=== PATIENT | female | born 1930 | race Caucasian/White ===

== ENCOUNTER 2018-07-03 14:38 | Emergency (ER) | payer MEDICARE, OTHER ==
--- NOTE | 2018-07-03 15:55 | CT ---
FCT brain noncontrast: HISTORY: head trauma FINDINGS: There is no evidence of acute intra-axial or extra-axial hemorrhage. No mass effect, midline shift, o r extra-axial fluid collection. No evidence of obstructive hydrocephalus. Calvarium is intact. IMPRESSION: No acute intracranial findings.
--- NOTE | 2018-07-03 15:57 | CT ---
FCT cervical spine noncontrast: HISTORY: 87-year-old female status post acute cervical trauma from fall. FINDINGS: No jumped or perched facets. Vertebral body heights are maintained. High-grade degenerative disc dise ase at C4-5 and C5-6. High-grade degenerative facet changes at several levels bilaterally. IMPRESSION: 1. Cervical spondylosis. 2. No acute fracture or acute traumatic subluxation.
--- NOTE | 2018-07-03 16:11 | RAD ---
FRadiograph right shoulder 3 views: HISTORY: 87-year-old female with traumatic shoulder pain from fall FINDINGS: No evidence of acute fracture, dislocation, or subluxation. Mild DJD at glenohumeral joint. Moderate DJD at AC joint. IMPRESSION: 1. No fracture. 2. Osteoarthrosis of acromioclavicular joint.
--- NOTE | 2018-07-03 16:12 | RAD ---
FXR Wrist 3 Rt View STANDARD: 07/03/2018 3:29 PM CLINICAL INDICATION: Wrist pain related to fall COMPARISON: None. FINDINGS: Fracture:No fracture. Arthropathy:Severe arthropathy. Incidental findings:Soft tissue prominence IMPRESSION: 1. No acute osseous abnormality.
[2018-07-03] MEDS ORDERED: Lidocaine 1% w/Epinephrine 1:100K 20 ML VIAL ONE (16:56)
[2018-07-03] MEDS ORDERED: Adacel (T-DAP) 0.5 ML SYRINGE ONE (17:29)
== END 2018-07-03 19:13 ==
LOC: ERS 14:38
DX: S01.511A Laceration without foreign body of lip, initial encounter (principal); S01.111A Laceration without foreign body of right eyelid and periocular area, initial encounter; S00.31XA Abrasion of nose, initial encounter; I11.0 Hypertensive heart disease with heart failure; I50.9 Heart failure, unspecified; E11.9 Type 2 diabetes mellitus without complications; E03.9 Hypothyroidism, unspecified; W19.XXXA Unspecified fall, initial encounter
CPT/HCPCS: 12013; 70450; 72125; 90471; 90715; J2001

== ENCOUNTER 2018-07-11 15:22 | Emergency (ER) | payer MEDICARE, OTHER | END 2018-07-11 16:44 | disposition home or self-care (01) | LOC: SCSER/OP 15:22 | DX: S01.511D Laceration without foreign body of lip, subsequent encounter (principal); E11.9 Type 2 diabetes mellitus without complications; E03.9 Hypothyroidism, unspecified; I11.0 Hypertensive heart disease with heart failure; I50.9 Heart failure, unspecified ==

== ENCOUNTER 2019-07-26 20:36 | Emergency (ER) | payer MEDICARE, OTHER ==
[~2019-07-26 20:36] MED LIST: EPINEPHrine 1 MG/10 ML Abboject SYRINGE ONE
[2019-07-26] MEDS ORDERED: fentaNYL Citrate/PF 2,000 MCG in Sodium Chloride 0.9% 60 ML IV SCH (21:02)
[2019-07-26 21:08] LABS: #Basophils 0.1 thou/uL (0.0-0.2); #Eosinphils 0.2 thou/uL (0.0-0.7); #Lymphocytes 5.9 thou/uL (1.20-3.40); #Monocytes 0.9 thou/uL (0.11-0.59); #Neutrophils 10.8 thou/uL (1.40-6.50); %Basophils 0.7 % (0.0-1.0); %Eosinophils 1.2 % (0.0-10.0); %Lymphocytes 32.8 % (21.0-51.0); %Monocytes 5.2 % (0.0-10.0); %Neutrophils 60.1 % (42.0-75.0); Hemoglobin 13.2 g/dL (12.0-16.0); Mean Corpuscular HGB CONC 31.3 g/dL (32.0-36.0); Mean Corpuscular Hemoglobin 29.3 pg (27.0-31.0); Mean Corpuscular Volume 93.7 fL (78.0-98.0); Mean Platelet Volume 8.7 fL (7.4-10.4); Platelet Count 296 thou/uL (130-400); RBC Distribution Width 14.8 % (11.5-14.5); Red Blood Cell (RBC) Count 4.52 mill/uL (4.20-5.40)
--- NOTE | 2019-07-26 21:10 | RAD ---
PORTABLE CHEST: 07/26/19 INDICATIONS: Difficulty breathing. Possible COVID-19. COMPARISON: 01/10/14. FINDINGS/IMPRESSION: Mild cardiomegaly again noted. There is vascular congestion. There are bilateral confluent infiltrate s in the mid and lower lungs and there are bilateral effusions. POS: AGW
[2019-07-26 21:14] LABS: INR-International Normal Ratio 0.9; PTT 30.1 SEC (22.9-36.1); Prothrombin Time 12.4 SEC (12.0-14.7)
[2019-07-26 21:21] LABS: Actual Bicarbonate (HCO3a) 20.8 mEq/L (22-28); Analyzer IN Cardio ER; Base Excess (BEa) -6.6 mEq/L (-2.0 to +3.0); CO2 Tension 49.3 mmHg (35.0-45.0); Calcium, Ionized 1.24 mmol/L (1.12-1.30); Carboxyhemoglobin (COHb) 0.2 gm% (0.0-3.0); Hemoglobin (Hb) 11.8 g/dL (12.0-16.0); Potassium - ABG Lab 3.97 mmol/L (3.70-5.30)
[2019-07-26 21:25] LABS: ALT (SGPT) 8 U/L (8-55); AST (SGOT) 14 U/L (5-34); Albumin 4.5 g/dL (3.4-4.8); Alkaline Phosphatase 62 U/L (40-110); Anion Gap 19 mmol/L (10-20); BUN (Urea Nitrogen) 17 mg/dL (9.8-20.1); Bilirubin, Total 0.4 mg/dL (0.2-1.2); CK (CPK) 24 U/L (29-168); Calc. Creatinine Clearance 0 mL/min (70-130); Calcium 10.8 mg/dL (7.8-10.44); Carbon Dioxide 23 mmol/L (23-31); Chloride 105 mmol/L (98-107); Estimated GFR-MDRD 36; Globulin 3.8 g/dL (2.4-3.5); Glucose 151 mg/dL (83-110); Potassium 5.5 mmol/L (3.5-5.1); Protein, Total 8.3 g/dL (6.0-8.3); Sodium 141 mmol/L (136-145)
[2019-07-26 21:58] LABS: Bacteria/HPF 4+ HPF (None Seen); Bilirubin Negative (Negative); Blood, Urine Negative (Negative); Clarity Turbid (Clear); Glucose, Urine (Dipstick) Normal (Negative); Leukocyte 500 Leu/uL (Negative); Nitrite Negative (Negative); Protein, Urine (Dipstick) 70 mg/dL (Neg-Trace); RBC/HPF 0-3 HPF (0-3); Squamous Epithelial 0-3 HPF (0-3); Urobilinogen Normal mg/dL (Less than 2); WBC/HPF Greater than 50 HPF (0-3)
[2019-07-26] MEDS ORDERED: HumaLOG 300 UNITS/3 ML VIAL SC PRN (22:15)
[2019-07-26] MEDS ORDERED: Norepinephrine 8 MG/0.9% NS 250 ML IVPB PRN (22:15)
[2019-07-26] MEDS ORDERED: Dextrose 5% in Water 1,000 ML IV PRN (22:15)
[2019-07-26] MEDS ORDERED: Dextrose 50% Abboject 50 ML SYRINGE SLOW IVP PRN (22:15)
[2019-07-26] MEDS ORDERED: Azithromycin 500 MG in Sodium Chloride 0.9% 250 ML 250 ML IVPB SCH (22:15)
[2019-07-26 22:16] LABS: pH, Arterial 7.24 (7.35-7.45)
[2019-07-26 22:18] LABS: ALV-art Gradient 585.375 (0-20); Puncture Site RBA
[2019-07-26] MEDS ORDERED: Vancomycin 1 GM/200 ML BAG ONE (22:18)
[2019-07-26] MEDS ORDERED: Cefepime 2 GM VIAL ONE (22:18)
[2019-07-26 22:41] LABS: Phosphorus 3.7 mg/dL (2.3-4.7)
[2019-07-26] MEDS ORDERED: cefTRIAXone\\ROCEPHIN 1 GM in Sodium Chloride 0.9% 100 ML IVPB SCH (23:15)
[2019-07-27] MEDS ORDERED: Levothyroxine Sodium 125 MCG TAB PO SCH (06:00)
[2019-07-27] MEDS ORDERED: Furosemide 40 MG/4 ML VIAL SLOW IVP SCH (06:00)
--- NOTE | 2019-07-27 07:32 | RAD ---
PORTABLE CHEST: HISTORY: Dyspnea. COMPARISON: Comparison is made to a film taken at 8:39 p.m. FINDINGS: ET tube has been placed, the tip above chin. NG tube has been placed and this tube appears to have passed through the EG junction with tip not visualized. There is cardiomegaly with vascular congestion. Bilateral infiltrates, more pronounced on the right. Some of this may represent edema. There may be superimposed inflammatory infiltrates on the right. POS: AGW
[2019-07-27] MEDS ORDERED: Heparin 5,000 UNITS/ML VIAL SC SCH (09:00)
[2019-07-27 12:09] LABS: SARS-CoV-2 MS2 Positive; SARS-CoV-2 N Gene Negative; SARS-CoV-2 S Gene Negative; SARS-CoV-2 orf1ab Negative
--- NOTE | 2019-07-27 12:11 | EKG ---
Test Reason : Blood Pressure : / mmHG Vent. Rate : 099 BPM Atrial Rate : 125 BPM P-R Int : 000 ms QRS Dur : 140 ms QT Int : 368 ms P-R-T Axes : 000 -04 128 degrees QTc Int : 472 ms Atrial fibrillation with premature ventricular or aberrantly conducted complexes Left bundle branch block Abnormal ECG Confirmed by BRIDGETTE VELOZ ([id number]), photo editor MAHSA MALHOTRA ([id number] on 07/27/2019 12:10:43 PM Referred By: Confirmed By:BRIDGETTE Carlin
--- NOTE | 2019-07-27 12:11 | EKG ---
Test Reason : Blood Pressure : / mmHG Vent. Rate : 074 BPM Atrial Rate : 288 BPM P-R Int : 000 ms QRS Dur : 138 ms QT Int : 416 ms P-R-T Axes : 000 030 086 degrees QTc Int : 461 ms Wide QRS rhythm Left bundle branch block Abnormal ECG Confirmed by BRIDGETTE VELOZ ([id number]), restaurant expeditor MAHSA MALHOTRA ([id number] on 07/27/2019 12:10:44 PM Referred By: Confirmed By:BRIDGETTE Carlin
== END 2019-07-26 23:07 | disposition expired ==
LOC: ERS 20:36
DX: J96.01 Acute respiratory failure with hypoxia (principal); J81.1 Chronic pulmonary edema; E11.9 Type 2 diabetes mellitus without complications; E03.9 Hypothyroidism, unspecified; I11.0 Hypertensive heart disease with heart failure; I50.9 Heart failure, unspecified
CPT/HCPCS: 71045; 80053; 82550; 82805; 83605; 83735; 83880; 84100; 84484; 85025; 85610; 85730; 87040; 93005; 94002; 94660; U0002; 31500; 36415; 51702; 81003; 81015; 87635; 92950; 96365; 96366; 96368; 96375; 99292; J0171; J0692; J3010; J3370; J3490; U0003